=== PATIENT | male | born 1970 | race Caucasian/White ===

== ENCOUNTER 2017-10-12 01:04 | Observation (INO) | payer BC, SELFPAY ==
[2017-10-12 01:53] LABS: #Eosinphils 0.1 thou/uL (0.0-0.7); #Lymphocytes 1.7 thou/uL (1.20-3.40); #Monocytes 0.9 thou/uL (0.11-0.59); #Neutrophils 13.2 thou/uL (1.40-6.50); %Basophils 0.2 % (0.0-1.0); %Eosinophils 0.6 % (0.0-10.0); %Lymphocytes 10.7 % (21.0-51.0); %Monocytes 5.6 % (0.0-10.0); %Neutrophils 82.9 % (42.0-75.0); Hemoglobin 15.5 g/dL (14.0-18.0); Mean Corpuscular HGB CONC 34.5 g/dL (32.0-36.0); Mean Corpuscular Volume 89.7 fl (80.0-94.0); Mean Platelet Volume 7.3 fL (7.4-10.4); Platelet Count 230 thou/uL (130-400); RBC Distribution Width 11.6 % (11.5-14.5); Red Blood Cell (RBC) Count 5.01 mill/uL (4.70-6.10)
[2017-10-12 01:55] LABS: Bilirubin Negative (Negative); Blood, Urine Negative (Negative); Clarity CLEAR (Clear); Glucose, Urine (Dipstick) Negative (Negative); Leukocyte Negative (Negative); Nitrite Negative (Negative); Protein, Urine (Dipstick) Negative (Neg-Trace); Urobilinogen 0.2 mg/dL (0.2-1.0); pH, Urine 5.5 (5.0-9.0)
[2017-10-12 03:14] LABS: ALT (SGPT) 35 U/L (8-55); AST (SGOT) 19 U/L (5-34); Albumin 4.4 g/dL (3.5-5.0); Alkaline Phosphatase 92 U/L (40-150); Anion Gap 11 mmol/L (10-20); BUN (Urea Nitrogen) 12 mg/dL (8.9-20.6); Bilirubin, Total 0.7 mg/dL (0.2-1.2); Calc. Creatinine Clearance 0 mL/min (70-130); Carbon Dioxide 29 mmol/L (22-29); Chloride 103 mmol/L (98-107); Estimated GFR-MDRD 60; Globulin 3.2 g/dL (2.4-3.5); Glucose 146 mg/dL (70-105); Lipase 10 U/L (8-78); Potassium 3.7 mmol/L (3.5-5.1); Protein, Total 7.6 g/dL (6.0-8.3); Sodium 139 mmol/L (136-145)
[2017-10-12] MEDS ORDERED: Morphine 4 MG/ML VIAL ONE (04:44)
[2017-10-12] MEDS ORDERED: Ondansetron HCl/PF 4 MG/2 ML Vial ONE (04:44)
[2017-10-12] MEDS ORDERED: Meropenem 1 GM in Syringe 20 ML SLOW IVP SCH (05:15)
[2017-10-12] MEDS ORDERED: Morphine 5 MG/ML SYRINGE SLOW IVP PRN (07:42)
[2017-10-12 07:43] VITALS: BMI 32.3
[2017-10-12] MEDS ORDERED: Ondansetron ODT 4 MG TAB PO PRN (07:43)
[2017-10-12] MEDS ORDERED: Ondansetron HCl/PF 4 MG/2 ML Vial IVP PRN ×2 (07:43→10:50)
[2017-10-12] MEDS ORDERED: Sodium Chloride 0.9% 1,000 ML IV SCH (07:45)
[2017-10-12] MEDS ORDERED: Ketorolac Tromethamine 30 MG/ML VIAL IVP SCH (08:45)
[2017-10-12] MEDS ORDERED: Acetaminophen 1,000 MG in Premix Bag 1 BAG IVPB SCH (08:45)
--- NOTE | 2017-10-12 08:48 | HP ---
HISTORY OF PRESENT ILLNESS: Guillermina Rodriguez is a 47-year-old male, farm and ranching work, from [facility], presents to the emergency room with onset of pain, right lower quadrant and involving the lowe r abdomen last night at 9:00 p.m. He was seen in the emergency room and evaluated. CAT scan of abdo men and pelvis obtained revealed changes consistent with appendicitis. He is admitted. He received meropenem. He is admitted to the hospital for fluids and antibiotics until laparoscopic appendectomy can be performed. I have explained to him the risk of infection, bleeding, visceral injury, risk of open procedure, colon injury, etc., and he consents and we will proceed with laparoscopic appendecto my today. ALLERGIES: None. TOBACCO: None. ALCOHOL: None. MEDICATIONS: None routinely. PAST SURGICAL/MEDICAL HISTORY: Noncontributory. REVIEW OF SYSTEMS: Noncontributory, 10-point. PHYSICAL EXAMINATION: VITAL SIGNS: 16, 98.6, 75, 144/86, 90 kg. HEAD, EARS, EYES, NOSE, AND THROAT: Unremarkable. LUNGS: Clear to auscultation. CARDIAC: Regular rate and rhythm without murmur, rub, or gallop. ABDOMEN: Soft, tenderness in right lower quadrant, guarding, rebound. EXTREMITIES: Unremarkable. No ankle edema. NEUROLOGIC: Intact. LYMPH: No lymphadenopathy neck, axilla, or groins. LABORATORY DATA: White count 16, hemoglobin 15. Sodium 139, creatinine 1.29, glucose 146. Liver fu nction tests normal. ASSESSMENT AND PLAN: Acute appendicitis. We recommend laparoscopic video appendectomy. Risk of inf ection, bleeding, the risk of the rest as explained above explained and questions answered.
[2017-10-12] MEDS ORDERED: Ketorolac Tromethamine 30 MG/ML VIAL ONE (09:03)
[2017-10-12 09:16] VITALS: TEMP 99.1
[2017-10-12] MEDS ORDERED: HYDROmorphone 0.5 MG/0.5 ML SYRINGE ONE (09:32)
[2017-10-12] MEDS ORDERED: Midazolam HCl 2 mg/2 ml Vial ONE (09:32)
[2017-10-12] MEDS ORDERED: Fentanyl 250 MCG/5 ML VIAL ONE (09:32)
[2017-10-12] MEDS ORDERED: Bupivacaine HCl 0.5%/Epinephrine 1:200,000/PF 30 ml Vial ONE (09:34)
--- NOTE | 2017-10-12 10:03 | CT ---
PRELIMINARY REPORT/[facility]/EMERGENCY AFTER HOURS PROCEDURE: Addendum created by Mekhi Jackson MD on 10/12/2017 4:52 AM Central Time ([place] & [place]) Findings discussed with SAMMY BUTT MD at time of interpretation. Initial Report created on 10/12/2017 4:45 AM Central Time ([place] & [place]) EXAM: CT Abdomen and Pelvis With Intravenous Contrast EXAM DATE/TIME: Exam ordered 10/12/2017 4:26 AM CLINICAL HISTORY: 47 years old, male; Pain and signs and symptoms; Nausea and vomiting; Abdominal pain; Localized; Right lower quadrant (rlq); Patient HX: M47 presents to ed C/O rlq abd pain that began 4 hours ago. Pt reports n/v x 1. Pt denies any other complaints. TECHNIQUE: Axial computed tomography images of the abdomen and pelvis with intravenous contrast. Coronal reformatted images were created and reviewed. COMPARISON: No relevant prior studies available. FINDINGS: Lower thorax: Small hiatal hernia. ABDOMEN: Liver: Hepatic steatosis. Gallbladder and bile ducts: Unremarkable. No calcified stones. No ductal dilation. Pancreas: Unremarkable. No mass. No ductal dilation. Spleen: Unremarkable. No splenomegaly. Adrenals: Unremarkable. No mass. Kidneys and ureters: Unremarkable. No solid mass. No hydronephrosis. Stomach and bowel: Unremarkable. No obstruction. No mucosal thickening. Appendix: The appendix is fluid-filled and dilated to 1.1 cm in caliber with mild periappendiceal inf lammation, compatible with acute appendicitis. Appendix is retrocecal. PELVIS: Bladder: Unremarkable. No mass. Reproductive: Unremarkable as visualized. ABDOMEN and PELVIS: Intraperitoneal space: No pneumoperitoneum or abscess. No significant fluid collection. Bones/joints: No acute fracture. No dislocation. Soft tissues: Unremarkable. Vasculature: Unremarkable. No abdominal aortic aneurysm. Lymph nodes: Unremarkable. No enlarged lymph nodes. IMPRESSION: Acute appendicitis. Thank you for allowing us to participate in the care of your patient. Dictated and Authenticated by: Mekhi Jackson MD 10/12/2017 4:45 AM Central Time ([place] & [place]) FINAL REPORT EMERGENCY AFTER HOURS CT ABDOMEN AND PELVIS: Date: 10/12/17 IMPRESSION: I agree with the preliminary interpretation given by [facility]. Findings compatible with acute appendiciti s. POS: [facility]
[2017-10-12] MEDS ORDERED: SUGAMMADEX SODIUM 200 MG/2 ML VIAL ONE (10:35)
[2017-10-12] MEDS ORDERED: Ibuprofen 600 MG TAB PO PRN (10:39)
[2017-10-12] MEDS ORDERED: traMADol HCl 50 MG TAB PO PRN ×2 (10:39)
[2017-10-12] MEDS ORDERED: Acetaminophen 500 MG TAB PO PRN (10:39)
[2017-10-12] MEDS ORDERED: Promethazine HCl 25 MG/ML VIAL IM PRN (10:50)
[2017-10-12] MEDS ORDERED: Promethazine HCl 25 MG/ML VIAL SLOW IVP PRN (10:50)
--- NOTE | 2017-10-12 13:12 | OP ---
DATE OF PROCEDURE: 10/12/2017 PREOPERATIVE DIAGNOSIS: Acute appendicitis. POSTOPERATIVE DIAGNOSIS: Acute appendicitis. PROCEDURE PERFORMED: Laparoscopic video appendectomy. SURGEON: Brian Tracy M.D. ANESTHESIA: General. Local 0.5% Marcaine with epinephrine, 30 mL. PROCEDURE IN DETAIL: The patient was taken to the operating room where under general anesthesia, abd omen was clipped of hair, prepared with chloraprep and draped in routine fashion. Sheppard catheter was placed in the beginning of the procedure and removed at the end. Infraumbilical incision made and p neumoperitoneum to 15 mmHg obtained with the Veress needle, replacing it with a 5 port laparoscope in serted. Right lateral subcostal incision made and a 5 port placed. Suprapubic incision made and 12 port placed. Mesoappendix was identified and the appendix inflamed. Mesoappendix divided with the L igaSure. The stump of the appendix dividing the cecal stump with Endo blue load JI stapler. Staple d cecal stump was slightly oozing. The Hemoclips were applied for hemostasis. Good hemostasis noted . Irrigant evacuated. Appendix placed in Endobag and removed. Suprapubic fascia approximated with 0 Vicryl GraNee needle. Pneumoperitoneum and irrigant evacuated. All this instruments removed and a ll skin incisions approximated with interrupted subdermal 4-0 Monocryl and DermaGlue applied.
[2017-10-12] MEDS ORDERED: ISOVUE-370 76%-LOCM 1 ML ONE (13:59)
[2017-10-12] MEDS ORDERED: Meropenem 2 GM in Admixture Fee 1 EACH IVPB SCH (14:00)
[2017-10-12] MEDS ORDERED: Meropenem 2 GM, Admixture Fee 1 EACH in Sodium Chloride 0.9% 100 ML IVPB SCH (14:00)
[2017-10-12 14:37] VITALS: BP 121/72
--- NOTE | 2017-10-12 14:52 | DIS ---
DATE OF ADMISSION: 10/11/2017 DATE OF DISCHARGE: 10/12/2017 DISCHARGE DIAGNOSIS: Acute appendicitis. PROCEDURES PERFORMED: CAT scan of the abdomen and pelvis verified appendicitis. Laparoscopic video appendectomy on 10/12/2017. DISCHARGE MEDICATIONS: [id number] Tylenol, Motrin for pain, Ultram #20 one refill as needed. DISCHARGE DIET AND ACTIVITY: As tolerated. INSTRUCTIONS: No lifting restrictions. Shower and bathe tonight, leave Derm[facility]. HOSPITAL COURSE: A 47-year-old male presenting with history on his own, classic for appendicitis, un derwent CAT scan from the emergency room, verifying that, received intravenous fluids and antibiotics , taken to the operating room for a laparoscopic video appendectomy and discharged home and follow up in 2 weeks.
[2017-10-12] MEDS ORDERED: Succinylcholine Chloride 20 MG/ML 10 ml SYRINGE FS ONE (17:09)
[2017-10-12] MEDS ORDERED: Propofol 200 MG/20 ML VIAL ONE (17:09)
[2017-10-12] MEDS ORDERED: Lidocaine 1% PF 5 ML VIAL ONE (17:09)
[2017-10-12] MEDS ORDERED: Glycopyrrolate 0.2 MG/ML 5 ML SYRINGE ONE (17:09)
== END 2017-10-12 13:25 | disposition home or self-care (01) ==
LOC: ERS 01:04 → 2SW 07:29
PROVIDERS: ADMIT Specialist; ATTEND Specialist
PROC: 0DTJ4ZZ Resection of Appendix, Percutaneous Endoscopic Approach (ICD-10-PCS; principal; 2017-10-12)
DX: K35.80 Unspecified acute appendicitis (principal)
CPT/HCPCS: 36415; 74177; 80053; 81003; 83690; 85025; 88304; 96361; 96374; 96375; 96376; J2270; A4216; G0378; J0131; J0670; J1170; J1885; J2001; J2185; J2250; J2405; J2704; J3010; J7050